=== PATIENT | female | born 1990 | race American Indian/Alaskan Native ===

== ENCOUNTER 2016-10-03 18:10 | Emergency (ER) | payer SELFPAY ==
[2016-10-03 18:35] VITALS: BP 113/73
[2016-10-03] MEDS ORDERED: EMLA TP ONE (22:51)
[2016-10-03] MEDS ORDERED: BACTRIM DS PO ONE (22:52)
--- NOTE | 2016-10-03 23:00 | Emergency Department Report ---
<LAMIN LASSITER - Last Filed: 10/03/16 23:48> ED ENT HPI - General Chief complaint: Earache Stated complaint: RT EAR SWOLLEN /LEFT FINGER Time Seen by Provider: 10/03/16 22:49 Source: patient Mode of arrival: Ambulatory Limitations: No Limitations - History of Present Illness Initial comments: 26-year-old female comes in complaint of swelling and redness to her right tragus area times one week. Patient reports is her third time that this has happened. She does admit that this is the worse that it has ever been. She denies any discharge from the area denies any trauma to the area she's had no fever no chills. Last LMP 09/21/2016 - Related Data Previous Rx's Medication Instructions Recorded Last Taken Type HYDROcodone/APAP 5-325 [Chadron 1 each PO Q6HR PRN #12 tablet 10/03/16 Unknown Rx 5/325] Ibuprofen [Motrin 600 MG tab] 600 mg PO Q8H PRN #30 tablet 10/03/16 Unknown Rx Sulfamethoxazole/Trimethoprim 1 each PO BID #20 tablet 10/03/16 Unknown Rx [Bactrim DS TAB] Allergies Allergy/AdvReac Type Severity Reaction Status Date / Time No Known Allergies Allergy Verified 10/03/16 18:37 ED Dental HPI - General Chief complaint: Earache Stated complaint: RT EAR SWOLLEN /LEFT FINGER Time Seen by Provider: 10/03/16 22:49 Source: patient Mode of arrival: Ambulatory Limitations: No Limitations - Related Data Previous Rx's Medication Instructions Recorded Last Taken Type HYDROcodone/APAP 5-325 [Chadron 1 each PO Q6HR PRN #12 tablet 10/03/16 Unknown Rx 5/325] Ibuprofen [Motrin 600 MG tab] 600 mg PO Q8H PRN #30 tablet 10/03/16 Unknown Rx Sulfamethoxazole/Trimethoprim 1 each PO BID #20 tablet 10/03/16 Unknown Rx [Bactrim DS TAB] Allergies Allergy/AdvReac Type Severity Reaction Status Date / Time No Known Allergies Allergy Verified 10/03/16 18:37 ED Review of Systems ROS: Stated complaint: RT EAR SWOLLEN /LEFT FINGER Other details as noted in HPI Comment: All other systems reviewed and negative Constitutional: no symptoms reported. denies: chills, fever ENT: other (swelling and pain of right ear) ED Past Medical Hx - Past Medical History Previous Medical History?: No - Surgical History Additional Surgical History: - Social History Smoking Status: Current Every Day Smoker Substance Use Type: Alcohol, Marijuana - Medications Home Medications: Home Medications Medication Instructions Recorded Confirmed Last Taken Type HYDROcodone/APAP 5-325 [Chadron 1 each PO Q6HR PRN #12 tablet 10/03/16 Unknown Rx 5/325] Ibuprofen [Motrin 600 MG tab] 600 mg PO Q8H PRN #30 tablet 10/03/16 Unknown Rx Sulfamethoxazole/Trimethoprim 1 each PO BID #20 tablet 10/03/16 Unknown Rx [Bactrim DS TAB] ED Physical Exam - General Limitations: No Limitations General appearance: alert, in no apparent distress - Head Head exam: Present: atraumatic, normocephalic - Eye Eye exam: Present: normal appearance - ENT ENT exam: Present: other (right tragus very erythematous erythematous tender to palpate no discharge noted) - Neck Neck exam: Present: normal inspection ED Course Vital Signs 10/03/16 18:32 Temperature 98.7 F Pulse Rate 80 Respiratory 16 Rate Blood Pressure 113/73 O2 Sat by Pulse 100 Oximetry - I & D Right Ear Site: Right tragus Blade Size: 18 gauge needle aspiration I & D Procedure: betadine prep, sterile drapes applied, sterile dressing applied Progress: cecy was applied prior to aspiration of abscess of right tragus, Patient tolerated well. ED Medical Decision Making - Medical Decision Making Evaluated by this provider in fast track. Discussed with Dr. Viveros and he came to evaluate the patient as well. We discussed that we should aspirate the abscess with a 16-gauge needle. An referred to plastics. This provider performed the aspiration as well as given patient Bactrim double strength 1. And we will give her Chadron 5/325 now. We will refer patient to plastics. We will also discharge patient on Bactrim double strength for 10 days as well as pain management. Patient verbalized understanding. Critical care attestation.: If time is entered above; I have spent that time in minutes in the direct care of this critically ill patient, excluding procedure time. ED Disposition Disposition: DISCHARGED TO HOME OR SELFCARE Is pt being admited?: No Does the pt Need Aspirin: No Condition: Stable Instructions: Cellulitis (ED) Additional Instructions: Very important to complete all antibiotics as prescribed. Very important follow -up with plastics. Discharge home on ibuprofen 3 times a day used and Chadron for breakthrough pain. She needs to have 48 hour follow-up. She can either come back to the ER, urgent care or primary care for follow-up of a wound. Prescriptions: Sulfamethoxazole/Trimethoprim [Bactrim DS TAB] 1 each PO BID #20 tablet Ibuprofen [Motrin 600 MG tab] 600 mg PO Q8H PRN #30 tablet PRN Reason: Pain HYDROcodone/APAP 5-325 [Chadron 5/325] 1 each PO Q6HR PRN #12 tablet PRN Reason: Pain Referrals: JENNY OTOOLE MD [Staff Physician] - 3-5 Days QUINTIN FLORENTINO MD [Staff Physician] - 3-5 Days PRIMARY CAREMD [Primary Care Provider] - 3-5 Days Forms: Work/School Release Form(ED) <ADILENEBASSEM - Last Filed: 10/05/16 05:12> ED Course - Reevaluation(s) Reevaluation #1: 10/05/16 05:11 Patient is seen and examined with the physician assistant professor of spanish. Has a small right anterior abscess of the ear. The abscess was aspirated, with significant improvement in the patient's symptoms. She reports that she is not . She will be started on antibiotics, instructed to have warm compresses, and to follow-up with either plastic surgery or otolaryngology.
[2016-10-03] MEDS ORDERED: NORCO 5/325 PO ONE (23:45)
== END 2016-10-04 00:16 | disposition home or self-care (01) ==
LOC: ED 18:10
DX: H66.41 Suppurative otitis media, unspecified, right ear (principal)
CPT/HCPCS: 87116

== ENCOUNTER 2018-03-24 05:51 | Emergency (ER) | payer SELFPAY ==
[2018-03-24] MEDS ORDERED: XYLOCAINE 1% 20 mL INFILTRATI ONE (09:23)
--- NOTE | 2018-03-24 09:27 | Emergency Department Report ---
- General Chief complaint: Skin/Abscess/Foreign Body Stated complaint: BOIL Time Seen by Provider: 03/24/18 09:22 Source: patient Mode of arrival: Ambulatory Limitations: No Limitations - History of Present Illness Initial comments: Patient reports abscess outside the right ear that started 2 days ago. She also reports a cyst on her right hand since last year. Tetanus Up to Date: yes Location: face (right external ear) Severity: severe Severity scale (0 -10): 9 Quality: aching Consistency: constant Improves with: none Worsens with: none Context: none, other (unknown) Associated symptoms: denies other symptoms, athralgias Treatments Prior to Arrival: none - Related Data Previous Rx's Medication Instructions Recorded Last Taken Type HYDROcodone/APAP 5-325 [Glen 1 each PO Q6HR PRN #12 tablet 10/03/16 Unknown Rx 5/325] Ibuprofen [Motrin 600 MG tab] 600 mg PO Q8H PRN #30 tablet 10/03/16 Unknown Rx Sulfamethoxazole/Trimethoprim 1 each PO BID #20 tablet 10/03/16 Unknown Rx [Bactrim DS TAB] Clindamycin [Clindamycin CAP] 300 mg PO Q8H #30 cap 03/24/18 Unknown Rx Ibuprofen [Motrin 800 MG tab] 800 mg PO Q8HR PRN #30 tablet 03/24/18 Unknown Rx Allergies Allergy/AdvReac Type Severity Reaction Status Date / Time No Known Allergies Allergy Verified 10/03/16 18:37 Abscess Boil HPI - HPI Chief Complaint: Skin/Abscess/Foreign Body Stated Complaint: BOIL Home Medications: Previous Rx's Medication Instructions Recorded Last Taken Type HYDROcodone/APAP 5-325 [Glen 1 each PO Q6HR PRN #12 tablet 10/03/16 Unknown Rx 5/325] Ibuprofen [Motrin 600 MG tab] 600 mg PO Q8H PRN #30 tablet 10/03/16 Unknown Rx Sulfamethoxazole/Trimethoprim 1 each PO BID #20 tablet 10/03/16 Unknown Rx [Bactrim DS TAB] Clindamycin [Clindamycin CAP] 300 mg PO Q8H #30 cap 03/24/18 Unknown Rx Ibuprofen [Motrin 800 MG tab] 800 mg PO Q8HR PRN #30 tablet 03/24/18 Unknown Rx Allergies/Adverse Reactions: Allergies Allergy/AdvReac Type Severity Reaction Status Date / Time No Known Allergies Allergy Verified 10/03/16 18:37 ED Review of Systems ROS: Stated complaint: BOIL Other details as noted in HPI Constitutional: denies: chills, fever Eyes: denies: eye pain, eye discharge, vision change ENT: ear pain (right). denies: throat pain Respiratory: denies: cough, shortness of breath, wheezing Cardiovascular: denies: chest pain, palpitations Endocrine: no symptoms reported Gastrointestinal: denies: abdominal pain, nausea, diarrhea Genitourinary: denies: urgency, dysuria, discharge Musculoskeletal: denies: back pain, joint swelling, arthralgia Skin: other (abscess external right ear). denies: rash, lesions Neurological: denies: headache, weakness, paresthesias Psychiatric: denies: anxiety, depression Hematological/Lymphatic: denies: easy bleeding, easy bruising ED Past Medical Hx - Past Medical History Previous Medical History?: No - Surgical History Past Surgical History?: Yes Additional Surgical History: x1 - Social History Smoking Status: Current Every Day Smoker Substance Use Type: Alcohol - Medications Home Medications: Home Medications Medication Instructions Recorded Confirmed Last Taken Type HYDROcodone/APAP 5-325 [Glen 1 each PO Q6HR PRN #12 tablet 10/03/16 Unknown Rx 5/325] Ibuprofen [Motrin 600 MG tab] 600 mg PO Q8H PRN #30 tablet 10/03/16 Unknown Rx Sulfamethoxazole/Trimethoprim 1 each PO BID #20 tablet 10/03/16 Unknown Rx [Bactrim DS TAB] Clindamycin [Clindamycin CAP] 300 mg PO Q8H #30 cap 03/24/18 Unknown Rx Ibuprofen [Motrin 800 MG tab] 800 mg PO Q8HR PRN #30 tablet 03/24/18 Unknown Rx ED Physical Exam - General Limitations: No Limitations General appearance: alert, in no apparent distress - Head Head exam: Present: atraumatic, normocephalic - Eye Eye exam: Present: normal appearance, PERRL, EOMI Pupils: Present: normal accommodation - ENT ENT exam: Present: normal exam, normal orophraynx, mucous membranes moist, TM's normal bilaterally. Absent: mucous membranes dry, normal external ear exam - Expanded ENT Exam Expanded Ear exam: Present: other (2 cm abscess to right tragus with fluctuance, no erythema noted) Mouth exam: Present: normal external inspection, tongue normal. Absent: drooling, trismus, muffled voice, tongue elevation, laceration Teeth exam: Present: normal inspection Throat exam: Positive: normal inspection. Negative: tonsillar erythema, tonsillomegaly, tonsillar exudate, R peritonsillar mass, L peritonsillar mass - Neck Neck exam: Present: normal inspection, tenderness, full ROM, lymphadenopathy ( right). Absent: meningismus, thyromegaly - Respiratory Respiratory exam: Present: normal lung sounds bilaterally. Absent: respiratory distress, wheezes, rales, rhonchi, stridor, chest wall tenderness, accessory muscle use, decreased breath sounds, prolonged expiratory - Cardiovascular Cardiovascular Exam: Present: tachycardia, normal heart sounds. Absent: normal rhythm, bradycardia, systolic murmur, diastolic murmur - Back Exam Back exam: Present: normal inspection, full ROM - Neurological Exam Neurological exam: Present: alert, oriented X3, CN II-XII intact, normal gait, reflexes normal. Absent: motor sensory deficit - Psychiatric Psychiatric exam: Present: normal affect - Skin Skin exam: Present: warm, dry, intact ED Course Vital Signs 03/24/18 03/24/18 05:55 10:28 Temperature 98.5 F Pulse Rate 110 H 89 Respiratory 16 16 Rate Blood Pressure 128/83 Blood Pressure 121/81 [Left] O2 Sat by Pulse 99 100 Oximetry - Reevaluation(s) Reevaluation #1: 03/24/18 09:27 Lidocaine and I & D set ordered - I & D Right Ear Type of Procedure: Simple Site: right ear tragus Blade Size: 11 I & D Procedure: betadine prep, sterile drapes applied, sterile dressing applied Progress: patient tolerated the procedure well ED Medical Decision Making - Lab Data Vital Signs 03/24/18 03/24/18 05:55 10:28 Temperature 98.5 F Pulse Rate 110 H 89 Respiratory 16 16 Rate Blood Pressure 128/83 Blood Pressure 121/81 [Left] O2 Sat by Pulse 99 100 Oximetry - Medical Decision Making During the course of ED, right ear tragus I & D and packed with 1/4 iodoform gauze. Patient tolerated the procedure well. She was sent home with prescriptions for Clindamycin and Ibuprofen, instructed to return back to the ED in 48 hours for packing removal, she verbalized understanding - Differential Diagnosis Right ear abscess, Right ear cellulitis, Right hand cyst Critical care attestation.: If time is entered above; I have spent that time in minutes in the direct care of this critically ill patient, excluding procedure time. ED Disposition Clinical Impression: Abscess, Cyst Disposition: - TO HOME OR SELFCARE Is pt being admited?: No Does the pt Need Aspirin: No Condition: Stable Instructions: Abscess (ED) Additional Instructions: Take medications as directed. Keep the wound covered. Return back to the ED in 48 hours for packing removal. Return back to the ED for worsening symptoms or concerns. Follow up with selective referral given at discharge Prescriptions: Clindamycin [Clindamycin CAP] 300 mg PO Q8H #30 cap Ibuprofen [Motrin 800 MG tab] 800 mg PO Q8HR PRN #30 tablet PRN Reason: Pain , Severe (7-10) Referrals: PRIMARY CAREMD [Primary Care Provider] - 3-5 Days ADELAIDA VALENCIA MD [Staff Physician] - 3-5 Days JENNY OTOOLE MD [Staff Physician] - 3-5 Days Forms: Work/School Release Form(ED) Time of Disposition: 10:22
[2018-03-24 10:30] VITALS: BP 121/81
== END 2018-03-24 10:28 | disposition home or self-care (01) ==
LOC: ED 05:51
DX: H60.01 Abscess of right external ear (principal); L02.521 Furuncle right hand